=== PATIENT | male | born 1935 | race Caucasian/White ===

== ENCOUNTER → 2016-05-17 | Outpatient (CLI) | payer OTHER ==
[~2016-05-17] MED LIST: ACAR25TA; FLUT110A INH; GLIP-116; INSLANTI; METF-312 PO; SIMV20TA90; [UNRECOGNIZED DRUG - CODE]; [UNRECOGNIZED DRUG - CODE]
== END | disposition home or self-care (01) ==
LOC: LAB 06:59
PROVIDERS: ATTEND Family Medicine
DX: E11.8 Type 2 diabetes mellitus with unspecified complications (principal)
CPT/HCPCS: 36415; 83036

== ENCOUNTER 2016-06-18 23:09 | Inpatient (IN) | payer OTHER ==
[~2016-06-18] VITALS: Ht 188 cm; Wt 85.2 kg
[2016-06-19 00:41] LABS: Albumin 3.4 g/dL (3.4-5.0); Anion Gap 8 (5-15); Aspartate Aminotransferase 15 U/L (15-37); BUN/Creatinine Ratio 17.3; Basophils # (auto) 0 uL; Basophils % (auto) 0.1 % (0.0-2.0); Blood Urea Nitrogen 23 mg/dL (7-18); Calcium 7.9 mg/dL (8.5-10.1); Carbon Dioxide 23 mmol/L (21-32); Chloride 103 mmol/L (98-107); DEFINITIVE VIEW TRANSMISSION; Eosinophils # (auto) 0.1 uL; Eosinophils % (auto) 0.4 % (0.0-7.0); GFR African American 67 mL/min; GFR Non-African American 55 mL/min; Glucose 377 mg/dL (74-106); Hemoglobin 13.4 g/dL (13.5-17.5); Lymphocytes # (auto) 7.5 uL; Lymphocytes % (auto) 44.3 % (10.0-50.0); Mean Corpuscular Hemoglobin 26.9 pg (28.0-32.0); Mean Corpuscular Hgb Conc. 32.8 g/dL (32.0-36.0); Mean Corpuscular Volume 82.2 fL (80.0-100.0); Monocytes # (auto) 0.8 uL; Monocytes % (auto) 4.5 % (0.0-12.0); Neutrophils # (auto) 8.5 uL; Neutrophils % (auto) 50.7 % (37.0-80.0); Platelet Count (auto) 160 10^3/uL (140-450); Red Cell Distribution Width 15.1 % (11.6-16.0); Sodium 134 mmol/L (136-145); White Blood Cell 16.8 10^3/uL (4.4-10.8)
[2016-06-19 00:46] LABS: Alkaline Phosphatase 76 U/L (45-117); Bilirubin, Total 0.4 mg/dL (0.2-1.0); Total Protein 6.6 g/dL (6.4-8.2)
[2016-06-19] MEDS ORDERED: IPRATROPIUM BROM 0.5 MG/2.5ML INH SOL NEB ONE (01:00)
[2016-06-19] MEDS ORDERED: ALBUTEROL SULF 2.5 MG/0.5ML(0.5%) NEB SOLN NEB ONE (01:00)
[2016-06-19] MEDS ORDERED: methylPREDNISolone SOD SUCC 125 MG/2 ML VL IV ONE (01:00)
[2016-06-19 01:20] LABS: B-Type Natriuretic Peptide 71.8 pg/mL (0-100); Temperature: 21.4 C (20.0-25.0)
[2016-06-19] MEDS ORDERED: ACETAMINOPHEN 325 MG TAB PO ONE (01:45)
[2016-06-19 04:19] LABS: Urine RBC None Seen /hpf (0 - 3)
[2016-06-19 04:28] LABS: Urine Bilirubin Negative (Negative); Urine Blood Negative /uL (Negative); Urine Color Yellow (Yellow); Urine Ketone Negative (Negative); Urine Nitrite Negative (Negative); Urine Urobilinogen Normal (Negative); Urine pH 6.5 (5.0-8.0)
[2016-06-19 04:32] LABS: Urine Glucose 4+ mg/dL (Normal)
[2016-06-19] MEDS ORDERED: ACETAMINOPHEN 325 MG TAB PO PRN (06:45)
[2016-06-19] MEDS ORDERED: ONDANSETRON HCL 4 MG/2 ML VIAL IV PRN (06:45)
[2016-06-19] MEDS ORDERED: IPRATROPIUM BROM 0.5 MG/2.5ML INH SOL NEB PRN (06:45)
[2016-06-19] MEDS ORDERED: ALBUTEROL SULF 2.5 MG/0.5ML(0.5%) NEB SOLN NEB PRN (06:45)
[2016-06-19] MEDS ORDERED: HYDROcodone-ACET 5/325MG TAB PO PRN (06:45)
[2016-06-19] MEDS ORDERED: DEXTROSE (50%) 50ML SYRG IV PRN ×2 (06:45→13:00)
[2016-06-19] MEDS: metFORMIN HYDROCHLORIDE 500 MG TAB PO SCH ×2 (07:00→18:09)
[2016-06-19] MEDS: glipiZIDE 5 MG TAB PO SCH ×2 (07:00→18:09)
[2016-06-19 08:07] VITALS: BP 133/62
[2016-06-19] MEDS ORDERED: ENOXAPARIN SOD 30 MG/0.3 ML SYRINGE SC SCH (10:00)
[2016-06-19] MEDS: FAMOTIDINE 20 MG TAB PO SCH ×2 (10:06→22:07)
[2016-06-19] MEDS: ENOXAPARIN SOD 40 MG/0.4 ML SYRINGE SC SCH (10:07)
[2016-06-19 10:23] VITALS: BP 133/62
[2016-06-19] MEDS: cefTRIAXone 1GM/50ML D5W 50 ML IV SCH (11:15)
[2016-06-19] MEDS ORDERED: InsuLIN REG 1unit/0.01ml Soln (100units/ml) SC SCH (12:00)
[2016-06-19] MEDS ORDERED: ACCU-CHEK COMFORT CURVE STRIP VI SCH (12:00)
[2016-06-19] MEDS ORDERED: InsuLIN REG 1unit/0.01ml Soln (100units/ml) SC ONE (13:00)
[2016-06-19 14:47] VITALS: BP 140/56
[2016-06-19] MEDS: ACCU-CHEK COMFORT CURVE STRIP VI SCH ×2 (17:00→22:07)
[2016-06-19] MEDS: InsuLIN REG 1unit/0.01ml Soln (100units/ml) SC SCH ×2 (18:03→22:00)
[2016-06-19 22:00] VITALS: BP 125/54
[2016-06-19] MEDS ORDERED: PATIENTS OWN MEDICATION (simvastatin 20 MG) PO SCH ×2 (22:00)
[2016-06-19] MEDS: INSULIN DETEMIR(LEVEMIR) 1unit/0.01ml Soln (100units/ml) SC SCH (22:00)
[2016-06-19] MEDS: BUDESONIDE (INHALATION) 0.5 MG/2 ML NEB NEB SCH (22:07)
[2016-06-19] MEDS: PRAVASTATIN SODIUM 20 MG TAB PO SCH (22:07)
[2016-06-20] VITALS (7 sets, daily range): BP systolic 118–171; BP diastolic 48–68
[2016-06-20 06:02] LABS: Basophils # (auto) 0 uL; Basophils % (auto) 0.2 % (0.0-2.0); DEFINITIVE VIEW TRANSMISSION; Eosinophils # (auto) 0 uL; Hematocrit 42.7 % (41.0-53.0); Lymphocytes # (auto) 7.6 uL; Lymphocytes % (auto) 38.8 % (10.0-50.0); Mean Corpuscular Hemoglobin 27.3 pg (28.0-32.0); Mean Corpuscular Hgb Conc. 32.9 g/dL (32.0-36.0); Mean Corpuscular Volume 83.1 fL (80.0-100.0); Mean Platelet Volume 9.6 fL (7.4-10.4); Monocytes # (auto) 0.9 uL; Monocytes % (auto) 4.7 % (0.0-12.0); Neutrophils # (auto) 11.1 uL; Neutrophils % (auto) 56.3 % (37.0-80.0); Platelet Count (auto) 156 10^3/uL (140-450); Red Cell Distribution Width 15.2 % (11.6-16.0); White Blood Cell 19.7 10^3/uL (4.4-10.8)
[2016-06-20] MEDS: metFORMIN HYDROCHLORIDE 500 MG TAB PO SCH ×2 (06:19→17:41)
[2016-06-20] MEDS: ACCU-CHEK COMFORT CURVE STRIP VI SCH ×4 (06:20→22:20)
[2016-06-20] MEDS: glipiZIDE 5 MG TAB PO SCH ×2 (06:20→17:41)
[2016-06-20] MEDS: InsuLIN REG 1unit/0.01ml Soln (100units/ml) SC SCH ×4 (06:22→22:00)
[2016-06-20] MEDS: INSULIN DETEMIR(LEVEMIR) 1unit/0.01ml Soln (100units/ml) SC SCH ×2 (06:24→22:22)
[2016-06-20 06:29] LABS: BUN/Creatinine Ratio 22.6; Calcium 8.5 mg/dL (8.5-10.1); Potassium 4.9 mmol/L (3.5-5.1)
[2016-06-20] MEDS: cefTRIAXone 1GM/50ML D5W 50 ML IV SCH (08:29)
[2016-06-20] MEDS: BUDESONIDE (INHALATION) 0.5 MG/2 ML NEB NEB SCH ×2 (09:59→21:37)
[2016-06-20] MEDS: ENOXAPARIN SOD 40 MG/0.4 ML SYRINGE SC SCH (10:27)
[2016-06-20] MEDS: FAMOTIDINE 20 MG TAB PO SCH ×2 (10:27→22:17)
[2016-06-20] MEDS: PRAVASTATIN SODIUM 20 MG TAB PO SCH (22:17)
[2016-06-21 05:16] VITALS: BP 141/59
[2016-06-21] MEDS: ACCU-CHEK COMFORT CURVE STRIP VI SCH ×2 (06:19→11:52)
[2016-06-21] MEDS: INSULIN DETEMIR(LEVEMIR) 1unit/0.01ml Soln (100units/ml) SC SCH (06:19)
[2016-06-21] MEDS: glipiZIDE 5 MG TAB PO SCH (06:20)
[2016-06-21] MEDS: metFORMIN HYDROCHLORIDE 500 MG TAB PO SCH (06:20)
[2016-06-21] MEDS: InsuLIN REG 1unit/0.01ml Soln (100units/ml) SC SCH ×2 (06:20→12:00)
[2016-06-21] MEDS: BUDESONIDE (INHALATION) 0.5 MG/2 ML NEB NEB SCH (06:34)
[2016-06-21 07:36] VITALS: BP 141/55
[2016-06-21] MEDS: cefTRIAXone 1GM/50ML D5W 50 ML IV SCH (09:07)
[2016-06-21 09:40] LABS: BUN/Creatinine Ratio 18.4; Calcium 7.6 mg/dL (8.5-10.1); Potassium 4.1 mmol/L (3.5-5.1)
[2016-06-21 09:42] LABS: Basophils # (auto) 0 uL; Basophils % (auto) 0.3 % (0.0-2.0); DEFINITIVE VIEW TRANSMISSION; Eosinophils # (auto) 0 uL; Hemoglobin 12.6 g/dL (13.5-17.5); Lymphocytes # (auto) 5.3 uL; Lymphocytes % (auto) 44.2 % (10.0-50.0); Mean Corpuscular Hemoglobin 26.7 pg (28.0-32.0); Mean Corpuscular Hgb Conc. 32.4 g/dL (32.0-36.0); Mean Corpuscular Volume 82.5 fL (80.0-100.0); Mean Platelet Volume 9.7 fL (7.4-10.4); Monocytes # (auto) 0.9 uL; Monocytes % (auto) 7.5 % (0.0-12.0); Neutrophils # (auto) 5.8 uL; Platelet Count (auto) 134 10^3/uL (140-450); Red Cell Distribution Width 15.6 % (11.6-16.0)
[2016-06-21] MEDS: FAMOTIDINE 20 MG TAB PO SCH (10:00)
[2016-06-21] MEDS: ENOXAPARIN SOD 40 MG/0.4 ML SYRINGE SC SCH (10:02)
[2016-06-21 11:49] VITALS: BP 140/60
== END 2016-06-21 13:35 | disposition home or self-care (01) | DRG 190 ==
LOC: EDBD 23:09 → ER 23:09 → OVERFLOW 23:10 → EAST 06-19 07:57
PROVIDERS: ADMIT Internal Medicine; ATTEND Internal Medicine
DX: J44.1 Chronic obstructive pulmonary disease with (acute) exacerbation (principal); J96.20 Acute and chronic respiratory failure, unspecified whether with hypoxia or hypercapnia; L97.419 Non-pressure chronic ulcer of right heel and midfoot with unspecified severity; L03.115 Cellulitis of right lower limb; D72.829 Elevated white blood cell count, unspecified; T38.0X5A Adverse effect of glucocorticoids and synthetic analogues, initial encounter; E11.621 Type 2 diabetes mellitus with foot ulcer; E11.65 Type 2 diabetes mellitus with hyperglycemia; E78.5 Hyperlipidemia, unspecified; J45.909 Unspecified asthma, uncomplicated; X58.XXXA Exposure to other specified factors, initial encounter; E11.22 Type 2 diabetes mellitus with diabetic chronic kidney disease; E11.21 Type 2 diabetes mellitus with diabetic nephropathy; N18.3 Chronic kidney disease, stage 3 (moderate); Z82.49 Family history of ischemic heart disease and other diseases of the circulatory system; Z83.3 Family history of diabetes mellitus; Z99.81 Dependence on supplemental oxygen; Z72.0 Tobacco use; Z79.899 Other long term (current) drug therapy; Z79.84 Long term (current) use of oral hypoglycemic drugs; Z79.4 Long term (current) use of insulin; Y93.89 Activity, other specified; Y92.89 Other specified places as the place of occurrence of the external cause; Y99.8 Other external cause status
CPT/HCPCS: 36415; 36600; 71010; 71020; 80048; 80053; 81001; 82805; 82962; 83735; 83880; 84484; 85025; 85379; 87040; 87081; 93005; 94640; 94761; J0696; J1815

== ENCOUNTER → 2016-07-26 | Day surgery (SDC) | payer OTHER ==
[2016-07-25 12:29] LABS: Basophils # (auto) 0 uL; Basophils % (auto) 0.3 % (0.0-2.0); DEFINITIVE VIEW TRANSMISSION; Eosinophils # (auto) 0.2 uL; Eosinophils % (auto) 1.7 % (0.0-7.0); Hematocrit 39.9 % (41.0-53.0); Hemoglobin 12.9 g/dL (13.5-17.5); Lymphocytes # (auto) 4.8 uL; Lymphocytes % (auto) 49.1 % (10.0-50.0); Mean Corpuscular Hemoglobin 26.4 pg (28.0-32.0); Mean Corpuscular Hgb Conc. 32.3 g/dL (32.0-36.0); Mean Corpuscular Volume 81.8 fL (80.0-100.0); Mean Platelet Volume 9.9 fL (7.4-10.4); Monocytes # (auto) 0.6 uL; Neutrophils # (auto) 4.2 uL; Neutrophils % (auto) 42.9 % (37.0-80.0); Platelet Count (auto) 177 10^3/uL (140-450); Red Cell Distribution Width 15.2 % (11.6-16.0); White Blood Cell 9.7 10^3/uL (4.4-10.8)
[2016-07-25 12:41] LABS: INR 0.99 (0.9-1.15); Partial Thromboplastin Time 27.5 sec (22.64-33.71); Prothrombin Time 10.7 sec (9.37-12.3)
[2016-07-25 12:48] LABS: Urine Bilirubin Negative (Negative); Urine Blood Negative /uL (Negative); Urine Color Yellow (Yellow); Urine Ketone Negative (Negative); Urine Nitrite Negative (Negative); Urine RBC <1 /hpf (0 - 3); Urine Squamous Epithelial Cell FEW /hpf (<5); Urine Urobilinogen Normal (Negative); Urine pH 5.5 (5.0-8.0)
[2016-07-25 12:49] LABS: Albumin 3.5 g/dL (3.4-5.0); BUN/Creatinine Ratio 20.7; Bilirubin, Total 0.5 mg/dL (0.2-1.0); Calcium 8.5 mg/dL (8.5-10.1); Potassium 4.5 mmol/L (3.5-5.1); Total Protein 7.2 g/dL (6.4-8.2)
[2016-07-25 13:10] LABS: Urine Glucose 4+ mg/dL (Normal)
[~2016-07-26] VITALS: Ht 30.5 cm; Wt 0.5 kg
[~2016-07-26] MED LIST changes: +BUPIVACAINE 0.75% INJ 10ML MPV SDV IJ ONE; +NEOMYCIN-BACITRACIN-POLYM 15GM TOP OINT TOP ONE; +ONDANSETRON HCL 4 MG/2 ML VIAL IV ONE; +ceFAZolin 1GM VL ONE; +ceFAZolin 1GM/50ML D5W 50 ML IV ONE; +ePHEDrine SULFATE 50 MG/ML AMP IV PRN; +fentaNYL CITRATE 100 MCG/2 ML VL IV ONE; +fentaNYL CITRATE 100 MCG/2 ML VL ONE; +hydrALAZINE HCL 20 MG/ML VL IV PRN
[2016-07-26] MEDS: HYDROmorphone HCL 2 MG/ML VL IV PRN ×2 (08:08→08:28)
[2016-07-26 09:05] VITALS: BP 140/62
== END | disposition home or self-care (01) ==
LOC: SUR 06:03
PROVIDERS: ATTEND Podiatrist Foot & Ankle Surgery
DX: L97.413 Non-pressure chronic ulcer of right heel and midfoot with necrosis of muscle (principal); I20.9 Angina pectoris, unspecified; J44.9 Chronic obstructive pulmonary disease, unspecified; J43.9 Emphysema, unspecified; C61 Malignant neoplasm of prostate; E11.9 Type 2 diabetes mellitus without complications; Z87.891 Personal history of nicotine dependence; B19.10 Unspecified viral hepatitis B without hepatic coma; F41.9 Anxiety disorder, unspecified; E78.00 Pure hypercholesterolemia, unspecified
CPT/HCPCS: 15002; 15271; 36415; 80053; 81001; 82962; 85025; 85610; 85730; 87070; 87075; J0690; J1170; J3010; J3490; Q4126; Q4139

== ENCOUNTER 2016-09-26 17:41 | Inpatient (IN) | payer OTHER ==
[~2016-09-26] VITALS: Ht 190.5 cm; Wt 89.0 kg
[~2016-09-26 17:41] MED LIST changes: -BUPIVACAINE 0.75% INJ 10ML MPV SDV IJ ONE; -METF-312 PO; +METF-370 PO; -NEOMYCIN-BACITRACIN-POLYM 15GM TOP OINT TOP ONE; -ONDANSETRON HCL 4 MG/2 ML VIAL IV ONE; -ceFAZolin 1GM VL ONE; -ceFAZolin 1GM/50ML D5W 50 ML IV ONE; -ePHEDrine SULFATE 50 MG/ML AMP IV PRN; -fentaNYL CITRATE 100 MCG/2 ML VL IV ONE; -fentaNYL CITRATE 100 MCG/2 ML VL ONE; -hydrALAZINE HCL 20 MG/ML VL IV PRN
[2016-09-26 18:46] LABS: Basophils # (auto) 0 uL; Basophils % (auto) 0.1 % (0.0-2.0); DEFINITIVE VIEW TRANSMISSION; Eosinophils # (auto) 0.2 uL; Hematocrit 42.3 % (41.0-53.0); Hemoglobin 13.8 g/dL (13.5-17.5); Mean Corpuscular Hgb Conc. 32.7 g/dL (32.0-36.0); Mean Corpuscular Volume 80.9 fL (80.0-100.0); Mean Platelet Volume 9.6 fL (7.4-10.4); Monocytes # (auto) 0.8 uL
[2016-09-26 18:57] LABS: Eosinophils % (auto) 1.9 % (0.0-7.0); Lymphocytes # (auto) 6.4 uL; Lymphocytes % (auto) 52.6 % (10.0-50.0); Mean Corpuscular Hemoglobin 26.4 pg (28.0-32.0); Monocytes % (auto) 6.3 % (0.0-12.0); Neutrophils # (auto) 4.8 uL; Neutrophils % (auto) 39.1 % (37.0-80.0); Platelet Count (auto) 218 10^3/uL (140-450); Red Cell Distribution Width 15.9 % (11.6-16.0); White Blood Cell 12.2 10^3/uL (4.4-10.8)
[2016-09-26 19:02] LABS: Albumin 3.7 g/dL (3.4-5.0); Calcium 9.1 mg/dL (8.5-10.1); INR 0.98 (0.9-1.15); Partial Thromboplastin Time 26.8 sec (22.64-33.71); Potassium 4.8 mmol/L (3.5-5.1); Prothrombin Time 10.7 sec (9.37-12.3)
[2016-09-26 19:04] LABS: BUN/Creatinine Ratio 21.5
[2016-09-26 19:07] LABS: Bilirubin, Total 0.3 mg/dL (0.2-1.0); Total Protein 7.4 g/dL (6.4-8.2)
[2016-09-27] MEDS ORDERED: HYDROcodone-ACET 5/325MG TAB PO PRN (05:30)
[2016-09-27] MEDS ORDERED: DEXTROSE (50%) 50ML SYRG IV PRN (05:30)
[2016-09-27] MEDS ORDERED: ONDANSETRON HCL 4 MG/2 ML VIAL IV PRN (05:30)
[2016-09-27] MEDS ORDERED: ACETAMINOPHEN 325 MG TAB PO PRN (05:30)
[2016-09-27] MEDS: SODIUM CHLORIDE 0.9% 1,000 ML IV SCH ×2 (05:42→19:45)
[2016-09-27] MEDS: CLINDAMYCIN 600MG IV 50 ML IV SCH ×3 (05:44→21:33)
[2016-09-27] MEDS: ACCU-CHEK COMFORT CURVE STRIP VI SCH ×3 (05:52→18:00)
[2016-09-27] MEDS: InsuLIN REG 1unit/0.01ml Soln (100units/ml) SC SCH ×3 (05:55→17:54)
[2016-09-27 08:42] VITALS: BP 112/62
[2016-09-27] MEDS: FAMOTIDINE 20 MG TAB PO SCH ×2 (10:00→21:32)
[2016-09-27 13:00] VITALS: BP 154/67
[2016-09-27] MEDS ORDERED: BUPIVACAINE 0.75% INJ 10ML MPV SDV IJ ONE (13:03)
[2016-09-27] MEDS ORDERED: ceFAZolin 1GM/50ML D5W 50 ML IV ONE (13:41)
[2016-09-27] MEDS ORDERED: fentaNYL CITRATE 100 MCG/2 ML VL ONE (13:53)
[2016-09-27] MEDS ORDERED: PROPOFOL 10 MG/ML 20 ML IV ONE (13:55)
[2016-09-27] MEDS ORDERED: GLYCOPYRROLATE 0.2 MG/ML 1ML VIAL IV ONE (14:00)
[2016-09-27] MEDS ORDERED: ONDANSETRON HCL 4 MG/2 ML VIAL IV ONE ×2 (14:00→15:15)
[2016-09-27] MEDS ORDERED: DEXAMETHASONE SOD PHOS 10MG/1ML VIAL INJ IV ONE (14:00)
[2016-09-27] MEDS ORDERED: HYDROmorphone HCL 2 MG/ML VL IV PRN (15:15)
[2016-09-27] MEDS ORDERED: LABETALOL HCL 5 MG/ML 4ML SYRINGE IV PRN (15:15)
[2016-09-27 17:00] VITALS: BP 112/57
[2016-09-27 22:00] VITALS: BP 114/65
[2016-09-28] MEDS: ACCU-CHEK COMFORT CURVE STRIP VI SCH ×3 (00:02→12:00)
[2016-09-28] MEDS: InsuLIN REG 1unit/0.01ml Soln (100units/ml) SC SCH ×3 (00:02→12:00)
[2016-09-28 05:30] VITALS: BP 103/54
[2016-09-28] MEDS: CLINDAMYCIN 600MG IV 50 ML IV SCH ×2 (05:46→14:00)
[2016-09-28 08:00] VITALS: BP 120/58
[2016-09-28 09:00] VITALS: BP 120/58
[2016-09-28] MEDS: FAMOTIDINE 20 MG TAB PO SCH (10:04)
[2016-09-28] MEDS ORDERED: SACC250C PO (11:04)
[2016-09-28] MEDS ORDERED: CLIN1CAP4 PO (11:04)
[2016-09-28 13:00] VITALS: BP 111/58
[2016-09-28 13:39] VITALS: BP 120/58
== END 2016-09-28 15:30 | disposition home or self-care (01) | DRG 617 ==
LOC: ER 17:47 → OVERFLOW 17:48 → CENTRAL 09-27 07:59
PROVIDERS: ADMIT Internal Medicine; ATTEND Internal Medicine
PROC: 0Y6M0ZC Detachment at Right Foot, Partial 3rd Ray, Open Approach (ICD-10-PCS; 2016-09-27)
PROC: 0Y6M0ZD Detachment at Right Foot, Partial 4th Ray, Open Approach (ICD-10-PCS; 2016-09-27)
PROC: 0HRMXK3 Replacement of Right Foot Skin with Nonautologous Tissue Substitute, Full Thickness, External Approach (ICD-10-PCS; 2016-09-27)
PROC: 0Y6M0ZB Detachment at Right Foot, Partial 2nd Ray, Open Approach (ICD-10-PCS; principal; 2016-09-27 14:00)
DX: E11.621 Type 2 diabetes mellitus with foot ulcer (principal); L03.115 Cellulitis of right lower limb; J96.10 Chronic respiratory failure, unspecified whether with hypoxia or hypercapnia; L97.519 Non-pressure chronic ulcer of other part of right foot with unspecified severity; E11.65 Type 2 diabetes mellitus with hyperglycemia; J44.9 Chronic obstructive pulmonary disease, unspecified; E11.21 Type 2 diabetes mellitus with diabetic nephropathy; F17.290 Nicotine dependence, other tobacco product, uncomplicated; J45.909 Unspecified asthma, uncomplicated; Z79.4 Long term (current) use of insulin; E78.5 Hyperlipidemia, unspecified; Z82.49 Family history of ischemic heart disease and other diseases of the circulatory system; Z83.3 Family history of diabetes mellitus; Z99.81 Dependence on supplemental oxygen; Z85.9 Personal history of malignant neoplasm, unspecified; Z71.89 Other specified counseling
CPT/HCPCS: 36415; 71010; 73630; 80053; 82962; 83036; 85025; 85610; 85730; 87070; 87075; 87077; 87186; 93005; J0690; J1100; J1815; J2405; J2704; J3490

== ENCOUNTER → 2016-10-12 | Outpatient (CLI) | payer OTHER ==
[~2016-10-12] MED LIST changes: -ACAR25TA; +CLIN1CAP4 PO; +SACC250C PO
== END | disposition home or self-care (01) ==
LOC: LAB 06:36
PROVIDERS: ATTEND Family Medicine
DX: E11.9 Type 2 diabetes mellitus without complications (principal)
CPT/HCPCS: 36415; 83036